=== PATIENT | female | born 2000 | race Hispanic/Latino ===

== ENCOUNTER 2025-01-22 09:46 | Outpatient (RCR) | payer SELFPAY ==
--- OUTSIDE RECORDS SUMMARY | 2025-01-22 09:51 | XMS_ITS | Clinical Summary ---
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 Name Role Phone Unavailable Primary Care Provider Unavailabl e Social History Tobacco Use Types Packs/Day Years Used Date Smoking Tobacco: Never Assessed Comments Unknown Sex and Gender Information Value Date Recorded Sex Assigned at Not on file Legal Sex Female 1:58 PM CDT Gender Identity Not on file Sexual Orientation Not on file Plan of Treatment Health Maintenance Due Date Last Done Comments Hepatitis C Virus (HCV) Screening 2000 TdaP Immunization 2000 Human Papillomavirus (HPV) Immunization (2 - 2-dose series) 07/10/2013 01/08/2013 Hepatitis B Immunization (1 of 3 - 19+ 3-dose series) 2019 Pap Smear 2021 Influenza Immunization (#1) 2024 05/11/2012 SARS-COV-2 Immunization ( season) 2024 Respiratory Syncytial Virus (RSV) Immunization (Adult) (1 - 1-dose 75+ series) 2075 Meningococcal Immunization (ACWY) Aged Out No longer eligible based on patient's age to complete this topic Pneumococcal Immunization Combined Aged Out No longer eligible based on patient's age to complete this topic Rotavirus Immunization Aged Out No lo nger eligible based on patient's age to complete this topic
--- OUTSIDE RECORDS SUMMARY | 2025-01-22 09:51 | XMS_ITS | Continuity of Care Document ---
Author Organization [facility] [place] Address [address] [place] [address] [address] Assessment No assessment recorded. Plan of Treatment Reminders Order Date Submit Date Provider Last Modified By Organization Details Last Modified Time Details Appointments U/S OB DATING/ VIABILI TY 2024 08:30A M ULTRASOUND Not available Not available Not available NEW PATIENT PROBLEM 2024 09:15A M MIGUEL ANGEL WHITE MD Not available Not available Not available Lab None recorde d. Referral None recorde d. Procedures None recorde d. Surgeries None recorde d. Imaging US, obstetr ic, transva ginal 2024 0[address], [address], [place], [address], 01/22/2025 10:48:35 Medication Orders None recorde d. Patient TargetsNo targets recorded. Patient InstructionsNo instructions recorded. Reason for Referral None Reported. Results Created Date Observation Date Name Description Value Unit Range Abnormal Flag Note LastModifiedBy Organization Detail LastModifiedTime 01/23/20 25 US, obste tric, trans vagin al No observ ation record ed. reuben [place] [address], [place], [address], 01/22/2025 10:22:40 01/23/20 25 01/22/2025 US, obste tric, trans vagin al No observ ation record ed. [id number] [address], [place], [address], 01/22/2025 10:25:01 Result Notes None recorded. Medical Equipment None Reported. Allergies No known drug allergies Medications Not known to be on any medication Vitals None Recorded Social History None recorded. Functional Status None recorded. Mental Status None recorded. Family History Nothing Reported. Medical History No medical history recorded. Gynecological HistoryNo gynecological history recorded. Obstetrics History GPAL:G 0 P 0 0 0 0 Past Encounters Encounter ID Performer Location Encounter Start Date Encounter Closed Date Diagnosis/Indication Diagnosis SNOMED-CT Code Diagnosis ICD10 Code Diagnosis Note [id number] MIGUEL ANGEL WHITE MD [place] [address] [address] 01/22/2025 09:34:11 01/22/2025 10:29:32 Uncertain viability of [id number] O36.80X0 Z3A.01 Health Concerns Section Related Observation LastModified by Organization Detai ls LastModified Time None Recorded Concern Status LastModified by Organization Details LastModified Time None Recorded Payers Encounter Date Sequence Insurance Name Policy Number Policy Andrade Covered Member ID Andrade Member ID Guarantor Name 01/22/2025 1 *SELF PAY* Ad daily [facility] Episode No OBEpisode recorded.
--- OUTSIDE RECORDS SUMMARY | 2025-01-22 09:51 | XMS_ITS | Data Portability ---
Author Organization [facility] [place] Address [address] [place] [place] [place] [address] Assessment No assessment recorded. Plan of Treatment [...] US, obstetr ic, transva ginal 2024 [id number], [address], [place], [address], 01/22/2025 10:48:35 Medication Orders None recorde d. Patient TargetsNo targets recorded. Patient InstructionsNo instructions recorded. Reason for Referral None Reported. Results Created Date Observation Date Name Description Value Unit Range Abnormal Flag Note LastModifiedBy Organization Detail LastModifiedTime 01/23/20 25 US, obste tric, trans vagin al No observ ation record ed. reuben [place] [address], [place], [address], 01/22/2025 10:22:40 01/23/20 25 01/22/2025 US, obste tric, trans vagin al No observ ation record ed. [id number], [place], [address], 01/22/2025 10:25:01 Result Notes None recorded. Medical [...] SNOMED-CT Code Diagnosis ICD10 Code Diagnosis Note [id number] MIGUEL ANGEL WHITE MD [place] [address] [address] 01/22/2025 09:34:11 01/22/2025 10:29:32 Uncertain viability of [id number] O36.80X0 Z3A.01 Health Concerns Section Related Observation LastModified by Organization Detai ls LastModified Time None Recorded Concern Status LastModified by Organization Details LastModified Time None Recorded Advance Directives Directive None Recorded Payers Insurance Date Sequence Insurance Name Policy Number Policy Andrade Covered Member ID Andrade Member ID Guarantor Name 01/22/2025 1 *SELF PAY* Ad daily [facility] Episode No OBEpisode recorded.
[2025-01-22 12:21] LABS: Beta HCG Quantitative 48244.00 mIU/ML
== END 2025-04-22 23:59 | disposition home or self-care (01) ==
LOC: ANHLAB 09:46
PROVIDERS: Visit Provider Obstetrics & Gynecology
DX: O36.80X0 Pregnancy with inconclusive fetal viability, not applicable or unspecified (principal)
CPT/HCPCS: 36415; 84702

== ENCOUNTER 2025-03-05 17:28 | Emergency (ER) | payer SELFPAY ==
[2025-03-05 17:30] VITALS: BP 145/86; PULSE 74; RESP 16; TEMP 36.6; O2SAT 100
--- NOTE | 2025-03-05 18:14 | ED_ITS ---
HPI - Skin/Abscess/Foreign Bdy General Chief complaint: Skin/Abscess/Foreign Body Stated complaint: rash, itching Time Seen by Provider: 03/05/25 17:57 History of Present Illness HPI narrative: This is an otherwise healthy 24 yo who presents to the ED for rash. Patient states that for the last 2 days she has had a rash that started on her back and has spread to her body. She does note that a few days ago, she had a headache and currently has a sore throat. No known sick contacts. Denies fevers, chills, chest pain, shortness of breath. No known bug bites, no new medications. Related Data Allergies Allergy/AdvReac Type Severity Reaction Status Date / Time No Known Allergies Allergy Verified 03/05/25 18:44 Review of Systems 2 Review of Systems: Gen.: Denies fevers or chills Eyes: Denies eye pain or visual change ENT: As per HPI Respiratory: Denies shortness of breath or cough CV: Denies chest pain or palpitations GI: Denies abdominal pain nausea, emesis or diarrhea denies burning, urgency, frequency or hematuria Musculoskeletal: Denies back pain or muscle pain Neuro: Denies numbness, tingling, weakness or focal weakness Skin: As per HPI Except as documented, all other systems reviewed and negative Exam 2 Narrative: APPEARANCE: No acute distress, nontoxic, resting in bed EYES: EOMI HEENT: Normocephalic, atraumatic, vescicles to the posterior pharynx and the palate. RESPIRATORY: No respiratory distress CARDIOVASCULAR: Regular rate and rhythm without murmurs rubs or gallops. ABDOMINAL: Nondistended MUSCULOSKELETAl: Moves all extremities. No clubbing, cyanosis or edema. NEURO: Awake and alert. Following commands, speech normal, no focal deficits SKIN:: Warm, dry. Diffuse macular rash that involves the palms, no central clearing. PSYCHIATRIC: Normal affect/mood, Course Vital Signs Vital signs: Vital Signs Temperature 97.9 F 03/05/25 17:30 Pulse Rate 74 03/05/25 17:30 Respiratory Rate 16 03/05/25 17:30 Blood Pressure 145/86 H 03/05/25 17:30 Pulse Oximetry 100 03/05/25 17:30 Oxygen Delivery Room Air 03/05/25 17:30 Temperature 97.9 F 03/05/25 17:30 Pulse Rate 74 03/05/25 17:30 Respiratory Rate 16 03/05/25 17:30 Blood Pressure 145/86 H 03/05/25 17:30 Pulse Oximetry 100 03/05/25 17:30 Oxygen Delivery Room Air 03/05/25 17:30 MDM - Skin/Abscess/Foreign Bdy MDM Narrative Medical decision making narrative: 24-year-old female with no significant past medical history presents to the ED for rash and sore throat. On initial evaluation, patient was in no acute distress, afebrile, hemodynamically stable. She had a macular rash to her whole body including to the palms. Labs without significant abnormalities. Negative for COVID/flu/RSV and group a strep. Patient likely has a viral exanthem. She was educated on supportive measures. She was given referral to [facility] in the area to establish care. Patient was agreeable to this plan. Given strict return precautions. Differential Diagnosis Differential diagnosis: Likely viral exanthem, allergic reaction to drug, insect bites and contact dermatitis Medical Records Attestation: I reviewed the patient's medical records. Lab Data 03/05/25 18:22 03/05/25 18:22 Labs: Lab Results 03/05/25 Range/Units 18:22 WBC 4.2 L (4.5-10.0) K/mm3 RBC 4.26 (4.2-5.4) M/mm3 Hgb 11.5 L (12.0-15.0) g/dL Hct 35.7 L (37.0-47.0) % MCV 83.8 (80-100) fl MCH 27.0 (26-34) pg MCHC 32.2 (32-36) g/dl RDW 12.9 (11.5-14.5) % Plt Count 218 (150-375) k/mm3 MPV 8.9 (7.4-10.4) fl Immature Gran % (Auto) 0.2 (0-0.5) % Neut % (Auto) 57.1 (45.5-73.1) % Lymph % (Auto) 35.7 (18.3-44.2) % [place] % (Auto) 5.5 (2.6-8.5) % Eos % (Auto) 1.0 (0-4.4) % Baso % (Auto) 0.5 (0.2-1.2) % Lymph # (Auto) 1.50 (0.9-3.2) K/mm3 [place] # (Auto) 0.2 (0.1-0.6) K/mm3 Eos # (Auto) 0.0 (0-0.3) K/mm3 Baso # (Auto) 0.0 (0.0-0.1) K/mm3 Abs Immat Gran (auto) 0.01 (0.00-0.031) K/mm3 Absolute Neuts (auto) 2.4 (1.3-6.7) K/mm3 Absolute Nucleated RBC 0.000 (0.0-0.012) K/mm3 Band Neutrophils % Not Reportable Nucleated RBC % 0.0 (0.0-0.2) % Atypical Lymphocytes Present Platelet Estimate Adequate (Adequate) Ovalocytes 1+ Schistocytes None seen Sodium 141 (137-145) mmol/L Potassium 3.5 (3.4-5.0) mmol/L Chloride 104 (98-107) mmol/L Carbon Dioxide 22 (22-30) mmol/L Anion Gap 15 H (4-12) mmol/L BUN 10 (7-17) mg/dL Creatinine 0.81 (0.7-1.0) mg/dL Estim Creat Clear Calc 74 ml/min Estimated GFR > 60 (59 - ) Glucose 122 H (65-110) mg/dL Calcium 9.6 (8.4-10.2) mg/dL Influenza A (RT-PCR) Negative (Negative) Influenza B (RT-PCR) Negative (Negative) RSV (RT-PCR) Negative (Negative) SARS-CoV-2 RNA (RT-PCR) Negative (Negative) Group A Strep (PCR) Not detected (Negative) Discharge Plan Discharge Clinical Impression: Viral exanthem Anemia Qualifiers: Anemia type: unspecified type Qualified Code(s): D64.9 - Anemia, unspecified Patient Disposition: Home Condition: Stable Instructions: Antibiotic Form, Acute Rash (ED) Additional Instructions: You likely have a viral exanthem. You may take zyrtec, claritin, or ольга for this if you develop itchiness. The rash should resolve on it's own. You may take tylenol and ibuprofen for fever/discomfort. Follow up with your PCP in the next week for reevaluation. Return to the ED for new or worsening symptoms. Patient Language: Japanese Follow-up/Referrals: PHYSICIAN,[facility] CONSULTANT [Primary Care Provider, Internal Medicine] Adriel Arreola MD [Physician, Family Practice]
[2025-03-05 18:29] LABS: Hematocrit 35.7 % (37.0-47.0); Hemoglobin 11.5 g/dL (12.0-15.0); Immature Granulocyte Percent A 0.2 % (0-0.5); Lymphocytes Absolute Auto 1.50 K/mm3 (0.9-3.2); Mean Corpuscular HGB Conc 32.2 g/dl (32-36); Mean Corpuscular Hemoglobin 27.0 pg (26-34); Mean Corpuscular Volume 83.8 fl (80-100); Nucleated Red Blood Cells Absolute Auto 0.000 K/mm3 (0.0-0.012); Nucleated Red Blood Cells Perc 0.0 % (0.0-0.2); Platelet Count Result 218 k/mm3 (150-375); Red Blood Count 4.26 M/mm3 (4.2-5.4); White Blood Count 4.2 K/mm3 (4.5-10.0)
[2025-03-05 18:39] LABS: Anion Gap 15 mmol/L (4-12); Blood Urea Nitrogen 10 mg/dL (7-17); Calcium 9.6 mg/dL (8.4-10.2); Carbon Dioxide 22 mmol/L (22-30); Chloride 104 mmol/L (98-107); Estimated CRCL calculation 74 ml/min; Estimated Glomerular Filt Rate > 60; Glucose 122 mg/dL (65-110); Potassium 3.5 mmol/L (3.4-5.0); Sodium 141 mmol/L (137-145)
[2025-03-05 18:51] LABS: Ovalocytes 1+; Schistocytes None Seen
[2025-03-05 18:55] LABS: Strep Group A RT-PCR NOT DETECTED (Negative)
[2025-03-05 19:07] LABS: Influenza A QL RT-PCR Negative (Negative); Influenza B QL RT-PCR Negative (Negative); RSV RNA, RT-PCR Negative (Negative); SARS-CoV-2 RNA PCR Negative (Negative)
--- OUTSIDE RECORDS SUMMARY | 2025-03-05 19:09 | XMS_ITS | Clinical Summary ---
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
== END 2025-03-05 19:23 | disposition home or self-care (01) ==
PROVIDERS: Emergency Provider Student in an Organized Health Care Education/Training Program
DX: B09 Unspecified viral infection characterized by skin and mucous membrane lesions (principal); D64.9 Anemia, unspecified; Z20.822 Contact with and (suspected) exposure to COVID-19
CPT/HCPCS: 36415; 80048; 85025; 87637; 87651; 99283